=== PATIENT | male | born 1945 | race Caucasian/White ===

== ENCOUNTER 2016-09-06 00:51 | Day surgery (SDC) | payer OTHER ==
[~2016-09-06] VITALS: Ht 185.4 cm; Wt 94.9 kg
[2016-09-06] VITALS (10 sets, daily range): BP systolic 123–140; BP diastolic 59–89; PULSE 70; RESP 12–18; O2SAT 95–97
[~2016-09-06 00:51] MED LIST: APIX2.5T PO; ASPI-973 PO; BUPR75TA10 PO; CARV25TA2 PO; CLOP75TA28 PO; FUR20 PO; LISI-571 PO; LOSA50TA37 PO; MULT-1018 PO; SIMV40TA5 PO; TEST100V4 IM
[2016-09-06 06:24] LABS: BASOPHILS % (AUTO) 0.3 % (0-3); EOSINOPHILS % (AUTO) 1.4 % (0-5); MONOCYTES % (AUTO) 7.8 % (4-12); Mean Corpuscular Hemoglobin 30.5 pg (27.0-35.0); Mean Corpuscular Volume 91.6 fL (81-100); NEUTROPHILS % (AUTO) 81.2 % (40-74); Platelet Count 156 bil/L (150-400)
[2016-09-06 06:47] LABS: INR 1.12 ratio
[2016-09-06] MEDS ORDERED: 0.9% Sodium Chloride 1,000 ML IV PRN (07:03)
[2016-09-06] MEDS ORDERED: Heparin 1,000 Unit/mL 10 mL Inj ONE (07:29)
[2016-09-06] MEDS ORDERED: Heparin 5,000 Units/500 mL NS Premix IV ONE (07:29)
[2016-09-06] MEDS ORDERED: 0.9% Sodium Chloride 250 ML ONE (07:29)
[2016-09-06] MEDS ORDERED: Bupivacaine-MPF 0.5% 30 mL Inj ONE (07:29)
[2016-09-06] MEDS ORDERED: Water for Injection 50 ML IV ONE (07:30)
[2016-09-06] MEDS ORDERED: CeFAZolin Inj 2 GM in Dextrose 5%-Pha MIX 50 ML IV ONE (07:40)
[2016-09-06] MEDS ORDERED: CARV6.252 PO (07:49)
[2016-09-06] MEDS ORDERED: fentaNYL-PF 50 mCg/mL 2 mL Inj ONE (08:07)
[2016-09-06] MEDS ORDERED: Sodium Chloride LOK Flush 10 mL Syringe IVFLUSH SCH (08:30)
[2016-09-06] MEDS ORDERED: 0.9% Sodium Chloride 1,000 ML IV SCH (09:19)
[2016-09-06] MEDS ORDERED: HYDROcodone-APAP 5-325 mg Tablet PO PRN (09:20)
[2016-09-06] MEDS ORDERED: Ondansetron 2 mg/mL 2 mL Inj IVPUSH PRN (09:20)
--- NOTE | 2016-09-06 11:49 | NUR ---
Discharge instructions reviewed with patient and his spouse.I checked with Dr Andrew that he is starting patient on Eliquis, first dose to be taken tonight and to continue plavix also, but aspirin has been discontinued.I reviewed precautions for increased propensity to bleed and to report any black tarry stools, ana blood in stool, bleeding gums immediately to Dr Andrew.Other instructions as noted on paperwork.Pacer site without bleeding or hematoma.He is discharged ambulatory with his at bedside to drive him home.
--- NOTE | 2016-09-07 09:43 | OUT PROC ---
[address] [address] PROCEDURE NOTE PATIENT: DARCIE REZA : 1945 MR#: [id number] ADMIT: 09/06/2016 JOB ID: [id number] DATE OF PROCEDURE: 09/06/2016 PROCEDURE: September 06, 2016 PROCEDURE: Permanent pacemaker generator replacement. INDICATION: Elective replacement interval. PREOPERATIVE DIAGNOSIS(ES): Sinus node dysfunction. POSTOPERATIVE DIAGNOSIS(ES): Sinus node dysfunction. CONSENT: The patient was explained the risks, benefits and alternatives of the procedure. Informed signed consent was obtained and placed in the chart. DESCRIPTION OF PROCEDURE: The patient was brought to the analytical laboratory technician and placed on the cath table. The left infraclavicular area was prepped and draped in the usual sterile manner. Lidocaine 1% was infiltrated in the left infraclavicular area. Good topical anesthesia was achieved. Anatomical landmarks were established. The pacemaker generator was identified. Subsequently, 3 inch long incision was made. The skin subcutaneous layer was dissected. Hemostasis was achieved with local pressure as well as use of electrocautery. The pacemaker pocket was dissected and the capsule was identified. Subsequently, the capsule was grabbed with a tooth forceps and an incision was made over the capsule. The capsule was further dissected along the incision line and the generator was identified. After the release of the capsule and the capsular tissue, the generator was pulled out of the pacemaker pocket. The generator was released from the prepectoral fascia as well. Subsequently, the new generator was placed. It was [employer] Accolade DRIS1, model 3L201, serial #[id number]. The atrial and ventricular leads were connected to their respective ports and the leads were screwed into the generator. A gentle tug was given to make sure there were no loose connections. The pacemaker pocket was irrigated with antibiotic solution. Subsequently, the generator was inserted in the pocket and it was anchored to the prepectoralis fascia with a 2-0 nonabsorbable suture. Subsequent to this, the subcutaneous layer was closed with continuous sutures. The skin and subcuticular layer was closed in a similar manner. The Steri-Strips were applied. The patient was taken out of the analytical laboratory technician in stable condition. DEVICE IDENTIFICATION: [employer] Accolade DRIS1, model 3L201, serial #[id number]. MEASURED DATA: RA lead impedance 0.4 mV, AFib underlying rhythm with an impedance of 431 ohms, RV intrinsic 25 mV with a threshold of 0.7 V at 40 msec. Impedance of 660 ohms. PROGRAM PARAMETERS: Mode DDDR with a lower rate of 60, maximum tracking rate of 140, maximum sensor rate of 140. AV delay was 240-280 msec. Sensitivity in the right atrium 0.25 mV and the RV 0.6 mV. Mode switch function is turned on. IMPRESSION: Successful dual-chamber permanent pacemaker replacement. MTDD
[2016-10-03] MEDS ORDERED: CHRO1TAB8 PO (15:00)
[2016-10-03] MEDS ORDERED: ASCO-294 PO (15:00)
[2016-10-03] MEDS ORDERED: UBID100C16 PO (15:00)
== END 2016-09-06 23:59 | disposition home or self-care (01) ==
LOC: SPI 00:51
PROVIDERS: ATTEND Internal Medicine Cardiovascular Disease
DX: Z45.010 Encounter for checking and testing of cardiac pacemaker pulse generator [battery] (principal); I49.5 Sick sinus syndrome; I44.2 Atrioventricular block, complete; I25.10 Atherosclerotic heart disease of native coronary artery without angina pectoris; I48.91 Unspecified atrial fibrillation; I10 Essential (primary) hypertension; E78.5 Hyperlipidemia, unspecified; Z95.1 Presence of aortocoronary bypass graft; Z72.0 Tobacco use; Z95.5 Presence of coronary angioplasty implant and graft; Z79.02 Long term (current) use of antithrombotics/antiplatelets; Z79.01 Long term (current) use of anticoagulants; Z95.2 Presence of prosthetic heart valve
CPT/HCPCS: 33228; 36415; 80048; 85025; 85610; 93005; 99152; 99153; C1785; J0690; J1644; J2250; J3010; J7030; J7050

== ENCOUNTER 2016-10-04 00:48 | Day surgery (SDC) | payer OTHER ==
[~2016-10-04] VITALS: Ht 188 cm; Wt 91.0 kg
[~2016-10-04 00:48] MED LIST changes: +ASCO-294 PO; -ASPI-973 PO; -CARV25TA2 PO; +CARV6.252 PO; +CHRO1TAB8 PO; -LISI-571 PO; +UBID100C16 PO
[2016-10-04 07:42] VITALS: BP 150/67; PULSE 70; RESP 18
[2016-10-04] MEDS ORDERED: Methohexital 10 mg/mL 50 mL Inj ONE (08:17)
[2016-10-04] MEDS ORDERED: Atropine 1 mg/10 mL (Code) Syringe ONE (08:18)
[2016-10-04 08:50] VITALS: BP 138/69; PULSE 78; RESP 18
--- NOTE | 2016-10-04 08:55 | NUR ---
Assisted with cardioversion. no respiratory issues noted. Time spent 20 minutes.
[2016-10-04 09:00] VITALS: BP 135/76; PULSE 78; RESP 18
[2016-10-04 09:10] VITALS: BP 126/72; PULSE 78; RESP 18
[2016-10-04 09:20] VITALS: BP 136/76; PULSE 77; RESP 18
--- NOTE | 2016-10-04 09:45 | NUR ---
Discharge Pt discharged to home post stable recovery of successful cardioversion, pt and pt stated verbal understanding of discharge instructions regarding use of home medications, followup appointments and signs of worsening condition, pt and left with personal belongings, discharge paperwork, IV dc'd intact at approximately 0930.
--- NOTE | 2016-10-05 08:29 | OUT PROC ---
[address] [address] PROCEDURE NOTE PATIENT: DARCIE REZA : 1945 MR#: [id number] ADMIT: 10/04/2016 JOB ID: [id number] DATE OF PROCEDURE: 10/04/2016 PROCEDURE: Synchronized cardioversion. INDICATION: Symptomatic atrial flutter, with decreased exercise tolerance and shortness of breath.. CONSENT: The patient was explained the risks, benefits and alternatives of the procedure. Informed signed consent was obtained. DESCRIPTION OF PROCEDURE: The patient was brought to the procedure room. Standard defibrillating pads were placed on the anterior and posterior holden. Then, 1 mg of Versed was administered intravenously, followed by 40 mg of Brevital given. The patient was monitored during the deep conscious sedation. After making sure the patient was in deep conscious sedation, 150 joules of synchronized DC current was administered. The rhythm changed. Postprocedure EKG showed sinus rhythm with V pacing. IMPRESSION: Successful synchronized direct current cardioversion.
== END 2016-10-04 23:59 | disposition home or self-care (01) ==
LOC: SOUO 00:48
PROVIDERS: ATTEND Internal Medicine Cardiovascular Disease
DX: I48.3 Typical atrial flutter (principal); Z95.0 Presence of cardiac pacemaker; E78.5 Hyperlipidemia, unspecified; F17.210 Nicotine dependence, cigarettes, uncomplicated; I10 Essential (primary) hypertension; Z79.01 Long term (current) use of anticoagulants; Z95.5 Presence of coronary angioplasty implant and graft; Z95.1 Presence of aortocoronary bypass graft; Z95.3 Presence of xenogenic heart valve
CPT/HCPCS: 92960; 93005; 94799; 99152; J2250